=== PATIENT | male | born 1965 | race Caucasian/White ===

== ENCOUNTER 2018-01-14 06:48 | Observation (INO) | payer OTHER ==
[2018-01-14 07:12] VITALS: RESP 18
--- NOTE | 2018-01-14 07:45 | ED PDOC ---
Lower Extremity Pain/Injury Time Seen by Provider: 01/14/18 07:39 Chief Complaint (Nursing): Lower Extremity Problem/Injury History Per: Patient History/Exam Limitations: no limitations Onset/Duration Of Symptoms: Gradual (2 weeks ago) Current Symptoms Are (Timing): Still Present Severity: Moderate Additional History Per: Patient Additional Complaint(s): c/o sudden left knee pain/stiffness, started 2 wks ago, "i felt it twisted". sent in by Dr. rahman for eval. - Knee Description Of Injury: Twisted Alleviating Factor(s): Ice Therapy, Elevation, OTC Pain Medication Past Medical History Reviewed: Historical Data, Nursing Documentation, Vital Signs Vital Signs: Last Vital Signs Temp 97.7 F 01/14/18 07:07 Pulse 80 01/14/18 07:07 Resp 18 01/14/18 07:07 BP 159/82 H 01/14/18 07:07 Pulse Ox 98 01/14/18 07:07 - Medical History PMH: No Chronic Diseases - Family History Family History: States: Unknown Family Hx - Living Arrangements Living Arrangements: With Family - Social History Current smoker - smoking cessation education provided: No - Home Medications Home Medications: Ambulatory Orders Medication Instructions Recorded No Known Home Med 01/14/18 - Allergies Allergies/Adverse Reactions: Allergies Allergy/AdvReac Type Severity Reaction Status Date / Time No Known Allergies Allergy Verified 01/14/18 07:11 Review of Systems ROS Statement: Except As Marked, All Systems Reviewed And Found Negative Constitutional: Negative for: Fever, Chills Cardiovascular: Negative for: Chest Pain Respiratory: Negative for: Shortness of Breath Gastrointestinal: Negative for: Nausea, Vomiting Physical Exam - Reviewed Nursing Documentation Reviewed: Yes Vital Signs Reviewed: Yes - Physical Exam Appears: Positive for: Uncomfortable Head Exam: Positive for: ATRAUMATIC, NORMAL INSPECTION, NORMOCEPHALIC Eye Exam: Positive for: Normal appearance Cardiovascular/Chest: Positive for: Regular Rate, Rhythm, Chest Non Tender. Negative for: Edema, Gallop Respiratory: Positive for: Normal Breath Sounds. Negative for: Decreased Breath Sounds, Accessory Muscle Use, Crackles, Rales, Rhonchi, Stridor, Wheezing Pulses-Dorsalis Pedis (L): 2+ Pulses-Dorsalis Pedis (R): 2+ Extremity: Positive for: Normal ROM (of left knee), Other (foot nvi, no signs of cellulits). Negative for: Tenderness, Calf Tenderness, Deformity, Swelling Neurologic/Psych: Positive for: Alert, recycler II-XII, Oriented. Negative for: Motor/Sensory Deficits - Laboratory Results Result Diagrams: 01/14/18 08:10 01/14/18 08:10 - ECG ECG: Positive for: Interpreted By Mn ECG Rhythm: Positive for: Normal QRS, Normal ST Segment, Sinus Rhythm. Negative for: ST/T Changes Interpretation Of Abn EKG: rate of 68 no evidence of ischemia O2 Sat by Pulse Oximetry: 98 Pulse Ox Interpretation: Normal - Radiology X-Ray: Interpreted by Me X-Ray Interpretation: No Acute Disease - Progress Condition: Improved Medical Decision Making Medical Decision Making: Time: 07:46 Plan: - EKG - CMP - Troponin I - CBC - Partial Thromboplastin Time - Prothrombin Time - Chest X-Ray Time: 08:[address] Sullivan (Hospitalist) Time: 08:12 - Urinalysis Stat - Admit to Hospital Scribe Attestation: Documented by Leonidas Burkett, acting as a scribe for Raul Scott M.D. Disposition - Clinical Impression Clinical Impression: Knee pain - Patient ED Disposition Is Patient to be Admitted: Yes Counseled Patient/Family Regarding: Studies Performed, Diagnosis, Need For Followup - Disposition Disposition: Routine/Home Disposition Time: 08:00 Condition: STABLE - Pt Status Changed To: Hospital Disposition Of: Observation - POA Present On Arrival: None
--- NOTE | 2018-01-14 08:04 | CP.SDSHP ---
Same Day Surgery H & P - History Proposed Procedure: Left knee diagnostic arthroscopy, possible ACL reconstruction, possible partial medial/lateral meniscectomy Pre-Op Diagnosis: Left knee ACL tear, medial meniscus tear, MCL sprain - Previous Medical/Surgical History Pain: 7. (with movement and EB) Previous Surgical History: none - Allergies Allergies: Allergies No Known Allergies Allergy (Verified 01/14/18 07:11) - Current Medications Current Medications: None - Physical Exam General Appearance: No acute distress, normal mood, normal affect Vital Signs: Vital Signs 01/14/18 01/14/18 07:07 07:46 Temperature 97.7 F Pulse Rate 80 Respiratory 18 Rate Blood Pressure 159/82 H O2 Sat by Pulse 98 98 Oximetry Mental Status: Alert & Oriented x3 Neuro: WNL Heart: WNL Lungs: WNL GI: WNL - {Optional Preform as Required} Abdomen: WNL Integument: WNL Ortho: Other (Mild swelling, no erythema, +medial joint tenderness, + medial McMurrays test, neg lachmans, gross NVI distally, 4/5 motor, comp's soft/NT) ENT: WNL - Impression Impression: Patient is a 52 y/o M with right knee MCL sprain, medial meniscus tear, possible ACL tear Pt. Evaluated Today:Candidate for Anesthesia & Procedure: Yes (Risks/kassidy d/w patient in detail, pt desires to proceed with procedure) - Date & Time Date: 01/14/18 Time: 08:09 Short Stay Discharge - Short Stay Discharge Admitting Diagnosis/Reason for Visit: LEFT KNEE PAIN Disposition: HOME/ ROUTINE
[2018-01-14 08:18] LABS: BASO # 0.1 K/uL (0.0-0.2); BASO % 1.3 % (0.0-2.0); EOS # 0.2 K/uL (0.0-0.7); EOS % 2.1 % (0.0-4.0); HEMOGLOBIN 15.3 g/dL (12.0-18.0); LYMPH # 1.7 K/uL (1.0-4.3); LYMPH % 20.6 % (20.0-40.0); MEAN CELL VOLUME 91.4 fl (80.0-94.0); MEAN CORPUSCULAR HEMOGLOBIN 30.3 pg (27.0-31.0); MEAN CORPUSCULAR HGB CONC 33.1 g/dL (33.0-37.0); MEAN PLATELET VOLUME 9.9 fl (7.2-11.7); MONO # 0.6 K/uL (0.0-0.8); MONO % 7.1 % (0.0-10.0); NEUT # 5.7 K/uL (1.8-7.0); NEUT % 68.9 % (50.0-75.0); NRBC % 0.1 % (0.0-0.0); RBC 5.07 Mil/uL (4.40-5.90); RED CELL DISTRIBUTION WIDTH 13.9 % (11.5-14.5); WHITE BLOOD COUNT 8.2 K/uL (4.8-10.8)
[2018-01-14 08:28] LABS: ALB/GLOB RATIO 1.3 (1.0-2.1); ALBUMIN 4.6 g/dL (3.5-5.0); ALT/SGPT 66 U/L (21-72); AST/SGOT 30 U/L (17-59); BLOOD UREA NITROGEN 22 mg/dl (9-20); CALCIUM 9.8 mg/dL (8.4-10.2); GFR AFRICAN-AMERICAN > 60; GFR NON-AFRICAN AMERICAN > 60
[2018-01-14 08:51] LABS: PARTIAL THROMBOPLASTIN TIME 30.7 Seconds (25.6-37.1); PROTHROMBIN TIME 11.2 Seconds (9.8-13.1)
[2018-01-14] MEDS ORDERED: Bupivacaine 0.5% Inj(30mL) ONE ×2 (09:08→13:19)
[2018-01-14] MEDS ORDERED: Bupivacaine HCl/Epi 0.5% 1:20000 30 ML SOL IJ ONE (09:09)
[2018-01-14] MEDS ORDERED: Lidocaine 2% Jelly (5 ml) TOP ONE (09:11)
[2018-01-14] MEDS ORDERED: Succinylcholine 200 mg/10 ml Inj IV ONE (09:12)
[2018-01-14] MEDS ORDERED: Phenylephrine 10 mg/ml Inj ONE (09:12)
[2018-01-14] MEDS ORDERED: Rocuronium 10 mg/ml (5 ml) ONE ×2 (09:12→12:42)
[2018-01-14 09:19] LABS: URINE BILIRUBIN NEGATIVE (NEGATIVE); URINE BLOOD NEGATIVE (NEGATIVE); URINE CLARITY CLEAR (Clear); URINE COLOR YELLOW (YELLOW); URINE GLUCOSE (UA) NEG (Normal); URINE LEUKOCYTE ESTERASE NEG Leu/uL (Negative); URINE NITRATE NEGATIVE (NEGATIVE); URINE PROTEIN NEGATIVE (NEGATIVE); URINE UROBILINOGEN 0.2-1.0 mg/dL (0.2-1.0)
[2018-01-14] MEDS ORDERED: Lidocaine 1% Inj (20ml) ONE (09:54)
[2018-01-14] MEDS ORDERED: Bacitracin Ointment 30 GM TUBE ONE (09:55)
[2018-01-14] MEDS ORDERED: Propofol 10 mg/ml Inj (20 ML) ONE (11:23)
--- NOTE | 2018-01-14 11:23 | RAD ---
PROCEDURE: CHEST RADIOGRAPH, 1 VIEW HISTORY: pre op COMPARISON: None available. FINDINGS: LUNGS: No acute pulmonary disease appreciated bilaterally. PLEURA: No pneumothorax or pleural fluid seen. CARDIOVASCULAR: Normal. OSSEOUS STRUCTURES: No significant abnormalities. VISUALIZED UPPER ABDOMEN: Normal. OTHER FINDINGS: None. IMPRESSION: No acute cardiopulmonary disease appreciated.
[2018-01-14] MEDS ORDERED: Lactated Ringer's 1,000 ML IV ONE (12:10)
[2018-01-14] MEDS ORDERED: Midazolam 2 MG/2 ML VIAL ONE (12:12)
--- NOTE | 2018-01-14 12:59 | PCM.ANESB3 ---
Femoral Nerve Block - Femoral Nerve Block Date of Procedure: 01/14/18 Anesthesiologist: Abi Pre-Procedure Diagnosis: Left MCL tear Post-Procedure Diagnosis: Same Procedure Performed: Femoral Nerve Block Left - Procedure Femoral Nerve Block: The procedure was explained to the patient that it is for the post-operative pain management. Consent was obtained after a thorough discussion with the patient regarding the benefits and possible complications of local anesthetic block of the femoral nerve at the inguinal crease area. The patient was brought to the operating room and standard monitors were applied. Time-out was held with the circulating nurse to confirm the correct surgery and the appropriate block. Under general anesthesia, patient was placed in supine position with fully extended lower extremities and the ___left groin exposed. The femoral artery was then carefully palpated. The ultrasound transducer was then applied to this area in the transverse plane and the femoral nerve was visualized lateral to the femoral artery and underneath the fascia iliaca. After thorough identification, the inguinal crease area was prepped with Chloraprep. At this point, a #22 gauge Stimuplex 2-inch needle was inserted immediately lateral to the femoral artery pulse at the inguinal crease and advanced perpendicularly. The needle was inserted to the ultrasound transducer in-plane towards the femoral nerve in a [id number] direction. Needle advancement was performed carefully under direct ultrasound visualization. Nerve stimulator was used and twitch of the quadriceps muscle was obtained at current of __0.4___ MA. After negative aspiration, __2___cc of __0.375___% __Bupivicaine with 1:200, 000 epinephrine was injected and this was followed with ___18_ __ cc of ___0.375____ % __Bupivicaine with 1:200,000 epinephrine . Under ultrasound guidance the local anesthetics were observed spreading below fascia iliaca and around the femoral nerve. The needle was removed intact. The patient had stable vital signs and in no apparent distress. The patient tolerated the femoral nerve block well with stable vital signs and was prepared for subsequent surgery.
--- NOTE | 2018-01-14 13:01 | PCM.ANESB2 ---
Popliteal Nerve Block - Popliteal Nerve Block Date of Procedure: 01/14/18 Anesthesiologist: Abi Pre-Procedure Diagnosis: Left MCL tear Post-Procedure Diagnosis: same Procedure Performed: Popliteal Nerve Block Left - Procedure Popliteal Nerve Block: This procedure was explained to the patient that it is for post-operative pain management. Consent was obtained after a thorough discussion with the patient regarding the benefits and possible complications of local anesthetic block of the sciatic nerve at the popliteal level. The patient was brought to the operating room and standard monitors are applied. Time-out was held with the circulating nurse to confirm the correct surgery and the appropriate block. Under general anesthesia, patient's operative leg was gently raised and supported and the groove in between the biceps femoris and vastus lateralis muscles was carefully palpated. The skin approximately 8cm above the popliteal crease was then marked. The ultrasound transducer was then applied to the posterior thigh approximately 8cm above the popliteal crease in the transverse plane and the sciatic nerve before its division was visualized lateral to the popliteal artery and in between the bicep femoris and semimembranosus/ semitendinosus muscles. After identification, the lateral portion of the thigh was prepped with Chloraprep. At this point, a # 21 gauge Stimuplex insulated 4 inch needle was inserted into pre-marked area and advanced in a perpendicular direction. The needle was inserted above the ultrasound transducer in-plane towards the sciatic nerve in a [id number] direction. Needle advancement was performed carefully under direct ultrasound visualization. Nerve stimulator was used and dorsiflexion of the __left___ foot was elicited at a current of _0.4____ MA. After repeated negative aspiration, __2___cc of _0.375____ % ___bupivicaine with 1:200,000 epinephrine was injected and this was flowed with ___18___ cc of _ 0.375 % ____Bupivicaine with 1:200,000 epinephrine . Under ultrasound guidance the local anesthetics were observed surrounding sciatic nerve . The needle was removed intact. The patient tolerated the popliteal nerve block well with stable vital signs and was subsequently prepared for the surgery.
[2018-01-14] MEDS ORDERED: Lidocaine 1% Inj (20ml) IJ ONE (13:03)
[2018-01-14] MEDS ORDERED: methylPREDNISolone Depo 80 mg/ml Inj ONE (13:19)
[2018-01-14] MEDS ORDERED: Morphine 1 mg/ml preservative-free Inj(Duramorph) ONE (13:19)
[2018-01-14] MEDS ORDERED: Sevoflurane - Inhalation Anesthetic Liq (250 ml) ONE (13:55)
[2018-01-14] MEDS ORDERED: Neostigmine 1:1000 (1 mg/ml) Inj ONE (14:36)
[2018-01-14] MEDS ORDERED: methylPREDNISolone Depo 80 mg/ml Inj IM ONE (14:45)
[2018-01-14] MEDS ORDERED: Oxycodone/Acetaminophen 5/325 mg Tab PO PRN (14:55)
[2018-01-14] MEDS ORDERED: Lactated Ringer's 1,000 ML IV SCH (15:15)
--- NOTE | 2018-01-14 15:20 | PCM.SURG1 ---
Surgeon's Initial Post Op Note - Surgeon's Notes Surgeon: Nancy Blue Line Hanger: WILTON Talley/ 2nd assist Ad Ortiz PA-C Type of Anesthesia: General Endo, Block Regional Anesthesia Administered By: DR Taylor/Lin Pre-Operative Diagnosis: Post ttraumatic derangement L Knee Operative Findings: Tear Medial Collateral ligament. tear lateral meniscus. chondrocalcinosis. cyst lateral meniscus Post-Operative Diagnosis: same Operation Performed: Primary repair/reconstruction MCL L Knee. arthroscopic partial lateral meniscectomy. arhtroscopic partial tricompartmental synovectomy. arthroscopic excsiopn (cyst). abrasion arthroplasty /excision chondrocalcinosis. applx knee immobilizer Specimen/Specimens Removed: synovium/cartilage/cyst Estimated Blood Loss: EBL {In ML}: 5 Blood Products Given: N/A Drains Used: No Drains Post-Op Condition: Good Date of Surgery/Procedure: 01/14/18 Time of Surgery/Procedure: 13:05 (time in room/anaesthesia indcution time12:10 end 1450)
--- NOTE | 2018-01-14 15:37 | RAD ---
PROCEDURE: Intraoperative fluoroscopy HISTORY: LEFT KNEE COMPARISON: Not available TECHNIQUE: Intraoperative fluoroscopy was provided. Total time of fluoroscopy was 17.0 seconds. FINDINGS: Four fluoroscopic spot films are submitted. IMPRESSION: Fluoroscopy provided.
--- NOTE | 2018-01-14 16:11 | RAD ---
PROCEDURE: Left Knee Radiographs. HISTORY: Pain. COMPARISON: None. FINDINGS: BONES: Postop changes are identified including gas in the soft tissues anteriorly but due to the patella and patellar tendon and possibly within the patellar tendon as well. Skin matilde are identified medially above and below the joint space. JOINTS: Postoperative emphysema. JOINT EFFUSION: None. OTHER FINDINGS: None. IMPRESSION: No acute fracture, dislocation or subluxation. Postoperative changes are identified in the soft tissues as discussed above possibly including the patellar tendon.
[2018-01-14 16:22] VITALS: O2SAT 100
[2018-01-14 19:12] VITALS: BP 148/78; PULSE 72; TEMP 97.6
--- NOTE | 2018-01-14 20:46 | OP ---
PROCEDURE DATE: 01/14/2018 PREOPERATIVE DIAGNOSIS: Internal derangement of the left knee. POSTOPERATIVE DIAGNOSES: Sprain lateral collateral ligament, sprain anterior cruciate ligament, tear lateral meniscus, chondrocalcinosis in the articular cartilage, femoral condyle, posterior aspect of the patella, cyst lateral meniscus. OPERATION PERFORMED: 1. Primary repair and reconstruction MCL, left knee. 2. Arthroscopic partial tricompartmental synovectomy. 3. Arthroscopic partial lateral meniscectomy. 4. Arthroscopic excision of a meniscal cyst with chondrocalcinosis abrasion arthroplasty, excision of chondrocalcinosis, application of knee immobilizer. SURGEON: Manuel Cruz MD FISHING VESSEL OPERATOR: Joya Ortiz, certified registered nursing assistant producer. SECOND MOTOR GRADER OPERATOR: Ad Ortiz PA-C It should be noted that the operation could not have been carried out without the assistance of these two assistance in terms of the progression of the operation and completion of the operative goal. SPECIMENS REMOVED: Synovium, cartilage and cyst. ESTIMATED BLOOD LOSS: Approximately 5 mL. BLOOD PRODUCTS GIVEN: None. DRAINS USED: No drains. POSTOPERATIVE CONDITION: Stable. ANESTHESIA INDUCTION TIME: 1210 hours. INCISION TIME: 1305 and 1450 hours. 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 OPERATIVE PROCEDURE: The patient was admitted, workup was accomplished. Pros, cons, risks and benefits of surgical approach were accomplished. The possibility of arthroscopic ACL reconstruction was discussed. The possibility of medial collateral ligament reconstruction and repair discussed. Possibility of surgical arthroscopy, possible meniscectomy discussed. Pros, cons, risks and benefits were same of the possibility of mechanical failure, infection, thromboembolic disease, secondary or tertiary surgery was discussed. The patient can no longer withstand the discomfort and wished the surgery to be accomplished. Again the possibility of later arthritic change, the possibility of secondary and later open operation was discussed. Possibility of nerve injury, mechanical failure, infection was discussed at length. The patient can no longer withstand the discomfort, wished the surgery to be accomplished. He is aware that the postoperative rehabilitation will be involved. OPERATIVE PROCEDURE: After having obtained informed consent in the above fashion, after thoroughly discussing the pros, cons, risks and benefits of surgical approach, possibility of mechanical failure, infection, thromboembolic disease, secondary or tertiary surgery was discussed. The patient can no longer withstand the discomfort. Possibility of nerve injury, stiffness, possibility of secondary or tertiary surgery was discussed. After having obtained informed consent in the above fashion, the patient's Frisian is perfect, after having identified side, site and procedure and critical pause/time-out after the satisfactory induction of the anesthetic. General and regional anesthesia by Dr. Taylor and later relieved by Dr. Ceballos. After having identified side, site and procedure and critical pause/time-out, the patient identified as Danis Vu in the supine position with all bony prominence well padded, the left lower extremity was prepped and free draped in the usual fashion for lower extremity surgery. The tourniquet had been applied, but is not yet inflated. The lateral post was applied to the operating table. After having identified the side, site and procedure in a critical pause/time-out after making sure all bony prominences were well padded, the left lower extremity was exsanguinated using a 6-inch Esmarch bandage, tourniquet which had been applied was inflated to 350 mmHg. The joint was insufflated with 10 mL of 1% lidocaine without epinephrine using a #11 blade followed by spreading, followed by introduction of blunt trocar, the arthroscope was introduced. Examination of the joint reveals extensive synovitis and marked chondrocalcinosis. Triangulation was accomplished using 18-gauge spinal needle, followed by #11 blade, followed by spreading, followed by introduction of blunt trocar. With the arthroscope anterolaterally, a careful partial tricompartmental synovectomy was accomplished. There was evidence of chondrocalcinosis in the posterior aspect of the patella and in the area of the femoral condyle. Abrasion arthroplasty was accomplished using the arthroscopic shaver and a portion of the chondrocalcinosis was excised carefully using a combination of the arthroscopic shaver and an abrasion arthroplasty as well as the 3.4 mm [employer] suction punch. There was found to be diffuse chondrocalcinosis of the soft tissues as well and again with the arthroscope anterolaterally with the surgeon exerting a gentle valgus stress, a careful partial tricompartmental synovectomy was accomplished both to improve visualization and to ablate irritative tissue. With the arthroscope anterolaterally, partial tricompartmental synovectomy having been completed with the knee in [id number] position, there was found to be a tear in the inner free edge of the lateral meniscus with evidence of chondrocalcinosis. There was evidence of a parameniscal cyst anteriorly in the region just lateral to the insertion of the anterior cruciate ligament which is intact and a cyst with chondrocalcinosis in the parameniscal cyst. A third portal was accomplished after centrally using #18-gauge spinal needle, followed by #11 blade, followed by spreading with the arthroscope anterolaterally, a careful partial tricompartmental synovectomy was completed both to improve visualization and to ablate irritative tissue. With the arthroscope anterolaterally and with the knee in [id number] position, there was found to be a tear of the inner free edge of the lateral meniscus. Please refer to the video photographs. With the arthroscope anterolaterally using a combination of the straight biting basket forceps and the side biting basket forceps, a partial lateral meniscectomy was accomplished as well as excision of partial of the chondrocalcinosis. The inner free edge was smoothed using the arthroscopic wand. Through the anterior central portal, the cyst was identified. Please refer to the video photographs. It was grasped with the grasper at the base, it was carefully excised. Again please refer to the video photographs. The base of the cyst was cauterized using the arthroscopic wand. At this point, the anterior cruciate ligament was found to be intact. There was found to be evidence of a chondrocalcinosis in the ligamentum mucosum which was seated with chondrocalcinosis. Further partial tricompartmental synovectomy was completed along with excision of the ligamentum mucosum. The medial meniscus was found to be intact. The medial joint was found to be essentially intact as well. Careful partial tricompartmental synovectomy having been completed, anterior cruciate ligament was intact, abrasion arthroplasty of the posterior aspect of the patella and the femoral condyles having been accomplished, chondrocalcinosis having been excised, the wound was thoroughly irrigated. There was found to be evidence of a medial collateral ligament instability at 0 degrees and 30 degrees. This having been accomplished, although there was not wide gapping, there was evidence of injury to the medial collateral ligament. The primary repair with internal brace augmentation was elected. The table was now prepared under the surgeon's direction, the fluoroscope was positioned, video images were generated and therapeutic decisions were made therefrom. The primary repair of the proximal origin of the MCL and a reconstruction/reinforcement with an internal brace with fiber braid was accomplished as well in this fashion. Under the surgeon's direction, the fluoroscope was positioned and the medial epicondyle was identified and at a point approximately 3.2 mm proximal and 4.8 mm posterior, an incision was described using #11 blade. Skin incision was carried down through the skin and subcutaneous tissue. Great care was taken to be aware of the superficial sensory branch of the saphenous nerve. This having been accomplished, the guidewire was placed. Verification of position was offered on image intensification. Reaming was accomplished to 20 mm and at this point the SwiveLock was loaded with fiber braid and SwiveLock was impacted and the anchor was seated. At this point in time, using the Metzenbaum scissors in subcutaneous tunnel, again taking great care to avoid injury to the saphenous nerves was accomplished using the Metzenbaum scissors. The tape was brought distally and at this point in time, an incision was accomplished at 4 mm anterior to the posterior medial crest of the tibia, 2 cm below the joint and 2 mm proximal to the pes anserinus insertion. An incision was accomplished transversely. Skin incision was carried down through the skin and subcutaneous tissue and again great care was taken to avoid injury to the saphenous nerve, dissection was carried out. The periosteum was elevated. The guide pin was placed. Reaming was accomplished and again the FiberTape was placed distally, is loaded in the SwiveLock anchor. The SwiveLock anchor was impacted. A [place] was placed proximally so as not to over tighten the fiber chloe construct. The SwiveLock anchor was impacted, twisted in and the position was found to be excellent. This was removed and attention was turned proximally. The torn fibers of the medial collateral ligament proximally were identified and this was repaired with interrupted FiberWire suture. This having been accomplished, the stability was found to be excellent. The wound was thoroughly irrigated. Closure of the periosteum distally was with the FiberWire as well, followed by 2-0 Vicryl, matilde and closure of the proximal incisions with Vicryl, FiberWire and 2-0 Vicryl and matilde for skin. Portals were closed with interrupted Vicryl and nylon. Intra-articular injection of Duramorph and Depo-Medrol was accomplished. Bol[place]ar Cameron compression dressing and knee immobilizers applied. Verification of position was offered after closure on AP and lateral image intensification views and found to be acceptable. Manuel Cruz MD
--- NOTE | 2018-01-15 18:11 | CARD ---
APPROVED REPORT EKG Measurement Heart [id number] ME [id number] <Conclusion> Normal sinus rhythm Cannot rule out Anterior infarct, age undetermined Abnormal ECG
== END 2018-01-14 20:20 | disposition home or self-care (01) ==
LOC: H.ER 06:48 → H.ERHOLD 08:12
PROVIDERS: ADMIT Internal Medicine; ATTEND Internal Medicine
DX: S83.282A Other tear of lateral meniscus, current injury, left knee, initial encounter (principal); S83.412A Sprain of medial collateral ligament of left knee, initial encounter; M11.262 Other chondrocalcinosis, left knee; X50.1XXA Overexertion from prolonged static or awkward postures, initial encounter; Y93.9 Activity, unspecified; Y92.9 Unspecified place or not applicable; M65.9 Synovitis and tenosynovitis, unspecified
CPT/HCPCS: 27405; 29879; 29881; 71045; 73560; 80053; 81003; 84484; 85025; 85610; 85730; 88305; 93005; 97116; 97161; 99283; C1713; G0378; G8978; G8979; G8980; J0171; J0330; J0690; J1040; J2001; J2250; J2270; J2370; J2704; J2710; J3010; J7030; J7120